=== PATIENT | female | born 1935 | race Caucasian/White ===

== ENCOUNTER 2019-07-24 07:36 | Outpatient (CLI) | payer MEDICARE, SELFPAY ==
--- NOTE | 2019-07-24 08:53 | ECG_ITS ---
Measurements Intervals [place] Rate: 80 P: 40 AK: 141 QRS: -24 QRSD: 134 T: -15 QT: 395 QTc: 457 Interpretive Statements SINUS RHYTHM WITH SINUS ARRHYTHMIA RIGHT BUNDLE BRANCH BLOCK LATERAL INFARCT, AGE INDETERMINATE BASELINE ARTIFACT- I, III, AVR, AVL, AVF, V5-V6 ABNORMAL ECG Electronically Signed On 07-24-2019 10:35:36 DATA SECURITY ANALYST by Zach Lo D.O.
[2019-07-24 09:47] LABS: Hemoglobin A1C 6.8 % (<5.7)
[2019-07-24 09:50] LABS: Albumin Level 4.5 g/dL (3.5-5.1); Estimated Glomerular Filt Rate 60; Glucose 169 mg/dL (65-105)
[2019-07-24 09:51] LABS: Basophils Absolute Auto 0.1 K/mm3 (0.0-0.1); Basophils Percent Auto 1.2 % (0.2-1.2); Eosinophils Absolute Auto 0.3 K/mm3 (0-0.3); Eosinophils Percent Auto 4.4 % (0-4.4); Hematocrit 43.8 % (37.0-47.0); Hemoglobin 14.5 g/dL (12.0-15.0); Immature Granulocyte Absolute 0.01 K/mm3 (0.00-0.031); Immature Granulocyte Percent A 0.2 % (0-0.5); Lymphocytes Percent Auto 28.4 % (18.3-44.2); Mean Corpuscular HGB Conc 33.1 g/dl (32-36); Mean Corpuscular Hemoglobin 30.2 pg (26-34); Mean Corpuscular Volume 91.3 fl (80-100); Mean Platelet Volume 10.3 fl (7.4-10.4); Monocytes Absolute Auto 0.6 K/mm3 (0.1-0.6); Monocytes Percent Auto 10.5 % (2.6-8.5); Neutrophils Absolute Auto 3.1 K/mm3 (1.3-6.7); Neutrophils Percent Auto 55.3 % (45.5-73.1); Platelet Count Result 306 k/mm3 (150-375); Red Cell Distribution Width 13.3 % (11.5-14.5); White Blood Count 5.6 K/mm3 (4.5-10.0)
[2019-07-24 09:53] LABS: Urine Cotinine NEGATIVE
== END 2019-07-24 07:37 | disposition home or self-care (01) ==
LOC: ANHSURGERY 07:41
PROVIDERS: PCP Family Medicine Adolescent Medicine; Visit Provider Orthopaedic Surgery
DX: M17.10 Unilateral primary osteoarthritis, unspecified knee (principal)
CPT/HCPCS: 36415; 80307; 82040; 82565; 82947; 83036; 85025; 86850; 86900; 86901; 87081; 93005

== ENCOUNTER 2019-08-07 05:14 | Day surgery (SDC) | payer MEDICARE, SELFPAY ==
[2019-08-07] VITALS (12 sets, daily range): BP systolic 146–202; BP diastolic 60–84; PULSE 63–70; RESP 14–21; TEMP 37; O2SAT 96–97; BMI 30.8
[2019-08-07 07:24] LABS: Basophils Absolute Auto 0.1 K/mm3 (0.0-0.1); Basophils Percent Auto 1.2 % (0.2-1.2); Eosinophils Absolute Auto 0.2 K/mm3 (0-0.3); Eosinophils Percent Auto 4.6 % (0-4.4); Hematocrit 43.1 % (37.0-47.0); Hemoglobin 14.5 g/dL (12.0-15.0); Immature Granulocyte Absolute 0.01 K/mm3 (0.00-0.031); Immature Granulocyte Percent A 0.2 % (0-0.5); Lymphocytes Absolute Auto 1.67 K/mm3 (0.9-3.2); Lymphocytes Percent Auto 33.5 % (18.3-44.2); Mean Corpuscular HGB Conc 33.6 g/dl (32-36); Mean Corpuscular Hemoglobin 30.5 pg (26-34); Mean Corpuscular Volume 90.5 fl (80-100); Mean Platelet Volume 9.8 fl (7.4-10.4); Monocytes Absolute Auto 0.5 K/mm3 (0.1-0.6); Monocytes Percent Auto 10.2 % (2.6-8.5); Neutrophils Absolute Auto 2.5 K/mm3 (1.3-6.7); Neutrophils Percent Auto 50.3 % (45.5-73.1); Platelet Count Result 295 k/mm3 (150-375); Red Blood Count 4.76 M/mm3 (4.2-5.4); Red Cell Distribution Width 13.2 % (11.5-14.5)
[2019-08-07 07:38] LABS: Blood Urea Nitrogen 16 mg/dL (7-17); Carbon Dioxide 24 mmol/L (22-30); Chloride 106 mmol/L (98-107); Estimated CRCL calculation 50 ml/min; Estimated Glomerular Filt Rate > 60; Glucose 159 mg/dL (65-105); Potassium 4.1 mmol/L (3.4-5.0); Sodium 144 mmol/L (137-145)
[2019-08-07 07:40] LABS: Prothrombin Time 12.6 Seconds (11.1-14.7)
--- NOTE | 2019-08-07 08:27 | WPDMODSED ---
Moderate Sedation Note-Pt Data Patient Data Diagnosis: Abnormal stress test Present Complaint: none Procedure to be performed/Plan: Left heart catheterization with selective left and right coronary angiography with left ventriculography and hemodynamics Allergies Allergy/AdvReac Type Severity Reaction Status Date / Time No Known Allergies Allergy Verified 07/24/19 08:02 Home Medications Medication Instructions Recorded Confirmed Type ascorbic acid (vitamin C) 100 mg 500 mg PO DAILY 07/03/19 08/06/19 History tablet aspirin 81 mg tablet,delayed 81 mg PO HS 07/03/19 08/06/19 History release fenofibrate 160 mg tablet 160 mg PO HS 07/03/19 08/06/19 History metoprolol tartrate 50 mg tablet 50 mg PO BID 07/03/19 08/06/19 History calcium carbonate [Calcium 600] 600 mg PO DAILY 07/24/19 08/06/19 History calcium carbonate-vitamin D3 1 cap PO DAILY 08/06/19 08/06/19 History Current Medications: Active Medications Sodium Chloride (Normal Saline Iv) 500 mls @ 100 mls/hr IV CONT .Q5H OMAR Sedation/Anesthesia: No previous sedation/anesthesia problems (including family history). [facility] Past Medical History Medical History Dyslipidemia Hypertension Osteoarthritis of knee Right bundle branch block Surgical History Surgical History H/O: hysterectomy History of hip replacement R MATTHEW in 2014 Family History Family History Mother Heart disease Social History Social History Smoking status: Never smoker Alcohol intake: current Gender identity (if verbalized by the patient): Female Mod Sed Physical Exam Physical Exam Pre Procedural Exam: Normal: Appearance, Eyes, Ears, Nose, Neck (Supple, normal range of motion), Throat (Posterior hypopharynx clear, nonerythematous), Airway (Normal anatomy, no obstruction), Lungs (Clear to auscultation bilaterally), Heart Size, Heart Rate, Heart Rhythm, Neuro Exam, Abdomen, Liver, Kidneys, Extremities and Skin Hours since solid foods: 12 Hours since liquid intake: 12 Internal Medicine - PN: Obj Da Vital Signs Vital Signs: Vital Signs - 24 hr 08/07/19 07:34 Temperature 37.0 C Pulse Rate 64 Respiratory Rate 18 Blood Pressure 163/62 H Pulse Oximetry 96 Meds/Results Medications: Active Medications Generic Name Dose Route Start Last Admin Trade Name Chon PRN Reason Stop Dose Admin Sodium Chloride 500 mls @ 100 mls/hr 08/07/19 06:10 Normal Saline Iv IV CONT .Q5H OMAR Labs CBC & Chem 7: 08/07/19 07:02 08/07/19 07:02 Labs: Laboratory Results - last 24 hr 08/07/19 08/07/19 08/07/19 07:02 07:02 07:02 WBC 5.0 RBC 4.76 Hgb 14.5 Hct 43.1 MCV 90.5 MCH 30.5 MCHC 33.6 RDW 13.2 Plt Count 295 MPV 9.8 Immature Gran % (Auto) 0.2 Neut % (Auto) 50.3 Lymph % (Auto) 33.5 [place] % (Auto) 10.2 H Eos % (Auto) 4.6 H Baso % (Auto) 1.2 Lymph # (Auto) 1.67 [place] # (Auto) 0.5 Eos # (Auto) 0.2 Baso # (Auto) 0.1 Abs Immat Gran (auto) 0.01 Absolute Neuts (auto) 2.5 Absolute Nucleated RBC 0.0 Nucleated RBC % 0.0 PT 12.6 INR 1.0 Sodium 144 Potassium 4.1 Chloride 106 Carbon Dioxide 24 BUN 16 Creatinine 0.80 Estim Creat Clear Calc 50 Estimated GFR > 60 Glucose 159 H Calcium 10.0 ASA Classification/Sedation ASA Classification/Sedation ASA Class: III Emergent: No Risks: Risks, benefits and alternatives explained and patient/family accepted plan for sedation. Patient re-evaluated immediately prior to sedation.
--- NOTE | 2019-08-07 08:34 | PM.PROC ---
Procedure Note - Detailed Date of procedure: 08/07/19 Pre-op diagnosis: Abnormal Stress Test Post-op diagnosis: same Procedure performed: Left heart catheterization with selective left and right coronary angiography with left ventriculography and hemodynamics Description of procedure: BRIEF HISTORY OF PRESENT ILLNESS: Patient is a pleasant 83-year-old female with a history of hypertension, dyslipidemia, chronic right bundle-branch block seen preoperative cardiovascular evaluation fracture right knee surgery due to abnormal EKG underwent noninvasive ischemic evaluation which revealed EF 52% with t.i.d. and hypokinesis of the mid anterior, anteroseptal and mid anterolateral wall with an akinetic apical anterior wall. She had a large area of severe anterior and anteroseptal infarction with [id number]-dk-[id number] fausto-infarct ischemia extending to the base most pronounced in the mid and apical segments. She is now referred for coronary angiography to clarify her coronary anatomy due to the high risk nature of her stress test. She has no known prior history of CAD or [place]. PROCEDURES PERFORMED: 1. Left heart catheterization 2. Selective left and right coronary angiography 3. Left ventriculography and hemodynamics 4. Moderate/conscious sedation administration 5. Selective right femoral angiography 6. 6 [place] Angioseal closure device deployment CATHETERS UTILIZED: Left coronary system- 5 [place] JL4 catheter Right coronary system- 5 [place] WRP catheter Left ventriculography and hemodynamics- 5 [place] angled pigtail catheter PROCEDURE IN DETAIL: After verbal and written informed consent was obtained the patient, risks, benefits, and alternatives explained in detail the patient agreed to proceed with the plan of care as outlined above. The patient was subsequently brought to the cardiac catheterization lab, placed on the cardiac catheterization table, and prepped and draped in the usual sterile fashion. Utilizing approximately 15cc of 1% subcutaneous Lidocaine, the right groin was then locally anesthetized. Utilizing the modified Seldinger technique, a 5 [place] arterial vascular access sheath was inserted in the right common femoral artery easily and without complications. Through this access, coronary angiography was subsequently obtained in multiple standard re-projections. Following this, a 5 [place] angled pigtail catheter was advanced retrograde across aortic valve into the cavity of the left ventricle. Left ventriculography was performed and pullback across aortic valve was subsequently recorded. The vascular access sheath and angiographic catheters were flushed before and after catheter exchanges. At the conclusion of the diagnostic portion of the procedure, all angiographic guidewires and catheters were removed. Following this, selective right femoral angiography was performed using a saline contrast mix injected through the side-arm port of the 5 [place] arterial vascular access sheath which revealed the arteriotomy site to be proximal to the bifurcation in the right common femoral artery suitable for Angio-Seal vascular closure device deployment. Subsequently, over the wire, the 5 [place] arterial vascular access sheath was then removed and a 6 [place] Angioseal vascular closure device was deployed easily and without complication. Additional 5 minutes manual pressure held per protocol with excellent hemostasis. There no complications noted at the conclusion of the diagnostic portion of the study. MODERATE SEDATION/ANESTHESIA ADMINISTRATION: Patient reports no prior problems with sedation/anesthesia. Please see pre-sedation noted for physical examination documentation. Sedation start time was 0856 and end time was 0856 for a total intra-service/procedure face-face time of 0946 minutes. A total of 1 mg intravenous Versed and a total of 75 mcg intravenous Fentanyl in multiple divided doses was administered for moderate sedation. Moderate sedation was ad
--- NOTE | 2019-08-07 10:10 | SUR.PHASEII ---
Patient returns to [facility] room [address] Jarrell, angioseal to RFA, family at bedside. Instructed on bed rest and restrictions, no bleeding or hematoma noted, will continue to monitor.
--- NOTE | 2019-08-07 11:12 | SUR.PHASEII ---
1100-Pt up to thirty degrees. No distress noted. Groin soft and non-tender, no evidence of bleeding or hematoma noted. Strong right pedal pulse noted. Will continue to monitor.
--- NOTE | 2019-08-07 14:16 | SUR.PHASEII ---
1400-pt given D/C orders and instructions. Questions answered and verbalized understanding. AOx4. Groin soft and non-tender, no evidence of bleeding or hematoma noted. Strong right pedal pulse noted. Taken via wheelchair to waiting vehicle. No distress noted or verbalized at time of departure.
== END 2019-08-07 14:10 | disposition home or self-care (01) ==
PROVIDERS: PCP Family Medicine Adolescent Medicine; Visit Provider Internal Medicine Cardiovascular Disease
PROC: 4A023N7 Measurement of Cardiac Sampling and Pressure, Left Heart, Percutaneous Approach (ICD-10-PCS; CPT 93452; principal; 2019-08-07 08:30)
DX: I25.10 Atherosclerotic heart disease of native coronary artery without angina pectoris (principal); R94.39 Abnormal result of other cardiovascular function study; I10 Essential (primary) hypertension; I45.10 Unspecified right bundle-branch block; E78.5 Hyperlipidemia, unspecified; Z79.82 Long term (current) use of aspirin
CPT/HCPCS: 36415; 80048; 85025; 85610; 93458; A9270; C1760; C1887; C1894; G0269; J1644; J2250; J3010; J7040

== ENCOUNTER 2019-08-21 09:11 | Outpatient (CLI) | payer MEDICARE, SELFPAY ==
[2019-08-21 10:12] LABS: Blood Urea Nitrogen 16 mg/dL (7-17); Calcium 9.8 mg/dL (8.4-10.2); Carbon Dioxide 26 mmol/L (22-30); Chloride 103 mmol/L (98-107); Cholesterol 188 mg/dL (0-200); Estimated Glomerular Filt Rate > 60; Glucose 162 mg/dL (65-105); HDL Direct 53 mg/dL; Potassium 4.2 mmol/L (3.4-5.0); Sodium 143 mmol/L (137-145); Triglycerides 102 mg/dL (<150)
[2019-08-21 10:24] LABS: LDL Cholesterol Direct 119 mg/dL
== END 2019-08-21 09:12 | disposition home or self-care (01) ==
LOC: ANHLAB 09:14
PROVIDERS: PCP Family Medicine Adolescent Medicine; Visit Provider Nurse Practitioner Adult Health
DX: I10 Essential (primary) hypertension (principal); I25.10 Atherosclerotic heart disease of native coronary artery without angina pectoris
CPT/HCPCS: 36415; 80048; 80061

== ENCOUNTER 2019-12-22 07:47 | Outpatient (CLI) | payer MEDICARE, SELFPAY ==
[2019-12-22 09:34] LABS: Basophils Absolute Auto 0.1 K/mm3 (0.0-0.1); Basophils Percent Auto 1.4 % (0.2-1.2); Eosinophils Absolute Auto 0.2 K/mm3 (0-0.3); Eosinophils Percent Auto 3.7 % (0-4.4); Hematocrit 44.1 % (37.0-47.0); Hemoglobin 14.7 g/dL (12.0-15.0); Immature Granulocyte Absolute 0.01 K/mm3 (0.00-0.031); Immature Granulocyte Percent A 0.2 % (0-0.5); Lymphocytes Percent Auto 29.6 % (18.3-44.2); Mean Corpuscular HGB Conc 33.3 g/dl (32-36); Mean Corpuscular Hemoglobin 30.6 pg (26-34); Mean Corpuscular Volume 91.9 fl (80-100); Mean Platelet Volume 10.1 fl (7.4-10.4); Monocytes Absolute Auto 0.6 K/mm3 (0.1-0.6); Monocytes Percent Auto 10.3 % (2.6-8.5); Neutrophils Absolute Auto 3.2 K/mm3 (1.3-6.7); Neutrophils Percent Auto 54.8 % (45.5-73.1); Platelet Count Result 282 k/mm3 (150-375); Red Cell Distribution Width 13.2 % (11.5-14.5); White Blood Count 5.8 K/mm3 (4.5-10.0)
[2019-12-22 09:44] LABS: Urine Cotinine NEGATIVE
[2019-12-22 09:45] LABS: Albumin Level 4.4 g/dL (3.5-5.1); Estimated Glomerular Filt Rate > 60; Glucose 189 mg/dL (65-105)
[2019-12-22 09:54] LABS: Hemoglobin A1C 7.2 % (<5.7)
== END 2019-12-22 07:48 | disposition home or self-care (01) ==
LOC: ANHSURGERY 07:53
PROVIDERS: PCP Family Medicine Adolescent Medicine; Visit Provider Orthopaedic Surgery
DX: M17.11 Unilateral primary osteoarthritis, right knee (principal); Z01.818 Encounter for other preprocedural examination
CPT/HCPCS: 36415; 80307; 82040; 82565; 82947; 83036; 85025; 86850; 86900; 86901; 87081

== ENCOUNTER 2019-12-26 00:09 | Outpatient (CLI) | payer MEDICARE, SELFPAY ==
[2019-12-27 17:28] LABS: SARS-CoV-2 RNA PCR Negative
== END 2019-12-26 00:10 | disposition home or self-care (01) ==
LOC: ANHCOVIDDT 00:09
PROVIDERS: PCP Family Medicine Adolescent Medicine; Visit Provider Orthopaedic Surgery
DX: Z01.818 Encounter for other preprocedural examination (principal); Z11.59 Encounter for screening for other viral diseases
CPT/HCPCS: 87635; C9803; U0003

== ENCOUNTER 2019-12-29 01:17 | Day surgery (SDC) | payer MEDICARE, SELFPAY ==
[2019-07-24 08:10] VITALS: BP 182/82; PULSE 76; RESP 20; TEMP 36.9; O2SAT 96
[2019-07-24 08:20] VITALS: BMI 31.4
[2019-09-08 11:00] VITALS: BMI 30.9
[2019-12-22 08:22] VITALS: BMI 31.8
[2019-12-22 08:50] VITALS: BP 158/63; PULSE 60; RESP 18; TEMP 36.8; O2SAT 99
[2019-12-29] VITALS (13 sets, daily range): BP systolic 150–180; BP diastolic 53–74; PULSE 60–83; RESP 12–21; TEMP 36–36.9; O2SAT 92–99
--- NOTE | ~2019-12-29 | XR_ITS ---
EXAMINATION: XR knee RT 2V DATE: 12/29/2019 10:14 INDICATION: Right total knee arthroplasty. Postop. TECHNIQUE: 2 views of right knee were obtained. COMPARISON: Right knee radiographs 07/03/2019 FINDINGS: There is a total right knee arthroplasty with patellar resurfacing in near-anatomic alignme nt. No fracture. There is gas in the soft tissues, consistent with recent surgery. IMPRESSION: 1. Total right knee arthroplasty in near-anatomic alignment. Reviewed, dictated and finalized at location A.
[2019-12-29] MEDS: LACTATED RINGERS 1,000 ML 30 ML IV CONT ×2 (06:45→10:00)
[2019-12-29] MEDS: TRANEXAMIC ACID 1,000MG/ISO100 1,000 MG/100 ML BAG 200 MG IVPB (06:45)
--- NOTE | 2019-12-29 06:51 | WPDANESEPPF ---
Anes - Initial Pre Proc Eval Procedure: Operation Date: 12/29/19 07:30 Proposed Procedures p Right Total Knee Arthroplasty - Socrates Klein MD Date/Time: 12/29/19 06:51 Surgeon: Socrates Klein MD Pre Op Diagnosis: OA Right Knee Patient Data Age: 84 Gender: F Height: 5 ft 4 in Weight: 84.3 kg Last Vital Signs Temp 36.8 C 12/22/19 08:50 Pulse 60 12/22/19 08:50 Resp 18 12/22/19 08:50 BP 158/63 H 12/22/19 08:50 Pulse Ox 99 12/22/19 08:50 Allergies Allergy/AdvReac Type Severity Reaction Status Date / Time No Known Allergies Allergy Verified 12/22/19 08:01 Home Medications Medication Instructions Recorded Confirmed Type ascorbic acid (vitamin C) 100 mg 500 mg PO DAILY 07/03/19 12/22/19 History tablet aspirin 81 mg tablet,delayed 81 mg PO HS 07/03/19 12/22/19 History release fenofibrate 160 mg tablet 160 mg PO HS 07/03/19 12/22/19 History metoprolol tartrate 50 mg tablet 50 mg PO BID 07/03/19 12/22/19 History calcium carbonate [Calcium 600] 600 mg PO DAILY 07/24/19 12/22/19 History calcium carbonate-vitamin D3 1 cap PO DAILY 08/06/19 12/22/19 History ramipril 1.25 mg PO DAILY #30 cap 08/07/19 12/22/19 Rx pravastatin [Pravachol] 40 mg PO HS 09/08/19 12/22/19 History multivitamin,ay-jnla-rnnjhqsr 1 tablet PO DAILY 12/22/19 12/22/19 History [Complete Multivitamin] naproxen sodium [Aleve] 220 mg PO Q12H PRN 12/22/19 12/22/19 History Patient hx anesthesia problems: none Family hx anesthesia problems: none PMFSH Past Medical History Medical History (Updated 12/29/19 @ 06:51 by Fran Jennings MD) CAD (coronary artery disease) Dyslipidemia Hypertension Osteoarthritis of knee Right bundle branch block Surgical History Surgical History H/O: hysterectomy History of hip replacement R MATTHEW in 2014 Family History Family History Mother Heart disease Social History Social History Smoking status: Never smoker Alcohol intake: current Gender identity (if verbalized by the patient): Female Anes - Eval Final PreProcedure Day of Procedure 12/29/19 06:51 Patient weight: obese Heart: regular rate and rhythm Lungs: clear to auscultation Airway: Mallamp[place] scale class II Neurological: alert and oriented Last oral intake: >/= 8 hours ASA classification: III Emergent: no Anesthetic plan: proceed Anesthesia type and monitoring: general ETT and standard monitoring Informed Consent: The patient's anesthetic plan and its attendant risks including ME and benefits were discussed with the patient/family/POA. Questions were solicited and answers provided to the satisfaction of the patient/family/POA.
--- NOTE | 2019-12-29 07:15 | WPDHPUPDATE1 ---
History and Physical Update Update Date/Time: 12/29/19 07:15 History and Physical has been reviewed, including an updated exam of the patient. There are NO changes in the patient's condition. Risks, benefits, and alternatives have been discussed and questions answered. Patient agrees to proceed with procedure.
[2019-12-29] MEDS: ceFAZolin 2 GM/D5W 50 ML 2 GM/50 ML BAG IVPB (07:39)
[2019-12-29] MEDS: TRANEXAMIC ACID 1,000 MG/10 ML AMPUL 1000 MG TOPICAL (08:05)
--- NOTE | 2019-12-29 08:08 | SUR.PREOP ---
0805-SPOKE WITH DAUGHTER, FILOMENA WITH UPDATE TO OR.
[2019-12-29] MEDS: GENTAMICIN BONE CEMENT REFOBACIN 1 EACH TOPICAL (09:00)
[2019-12-29] MEDS: ceFAZolin SODIUM 1 GM VIAL IV PUSH (09:20)
--- NOTE | 2019-12-29 09:57 | PM.PROC ---
Procedure Note - Detailed Date of procedure: 12/29/19 Pre-op diagnosis: OA Right Knee Post-op diagnosis: same Procedure performed: Right total knee replacement Description of procedure: The patient was identified and proper site identified. The patient was taken to the operating room and transferred to the OR table positioning supine taking care to pad the torso and extremities. After general anesthetic induction and intubation a nonsterile tourniquet was placed high on the left thigh. The left lower extremity was prepped and draped in the usual sterile fashion. The extremity was exsanguinated and with the knee flexed tourniquet was inflated to 300 mmHg remaining up for approximately 70 minutes. An anterior midline incision was made and a modified medial parapatellar approach was used. Infra and suprapatellar fat pads were excised. Patella was resected leaving 15 mm thickness and prepared for the 31 round three peg component. Using the intramedullary guide the distal femur was cut in the proper orientation for the size 67.5 femoral component. Using the extramedullary guide the tibia was cut perpendicular to the long axis protecting collateral ligaments and popliteal structures. It was sized to a 67. Flexion and extension gaps were balanced. Trial reduction was undertaken and the weight-bearing line was noted to passed through the center of the joint. Proximal tibia was drilled and punched in the proper orientation for the real component. Trial components were removed. The bone surfaces were washed with pulsatile lavage and dried. The real components were cemented simultaneously. The knee was held in extension and the patella held clamped until the cement had cured. Excess cement was removed from the joint. After trialing it was determined that the 13 mm insert gave full range of motion from 0-120 degrees of flexion and the patella tracked in the femoral groove with no lift-off. After final lavage the joint the real 13 insert was placed and secured with a locking bar. A Betadine and saline wash was placed into the wound and allowed to sit for approximately 3 minutes and then evacuated. Periarticular tissues were infiltrated with 60 cc of the arthroplasty solution. 1 g of tranexamic acid was left in the wound. The extensor mechanism was repaired with #2 Vicryl suture and 0 looped PDS suture. Subcu was reapproximated with two 0 strata fix and tissue adhesive for the skin. A sterile dressing was applied. She tolerated the procedure well, was awakened and extubated, transferred to the bed and was taken to recovery area in stable condition. There were no known intraoperative complications. Perioperative antibiotics were administered. Anesthesia: GLMA Surgeon: Socrates Klein MD Estimated blood loss (mL): 100 Tourniquet time (min): 70 Drains: No Packing: No Pathology: none sent Complications: No immediate complications Condition: stable Disposition: PACU
--- NOTE | 2019-12-29 10:52 | SUR.PHASEI ---
1010 xrays of right knee done.
[2019-12-29] MEDS: SODIUM CHLORIDE 0.9% IV 1,000 ML 125 ML IV CONT (11:54)
[2019-12-29] MEDS: oxyCODONE/ACETAMINOPHEN 5-325 MG TABLET 1 TABLET PO ×3 (13:56→20:59)
--- NOTE | 2019-12-29 16:41 | CONS_ITS ---
This report was moved to the correct visit, [id number] on 05/06/2020. Original report was signed by Misty Melchor APN on 12/29/19 1407. ADDENDUM This is for the consult for 12/29/19 Addendum Documented By: Misty Melchor 03/18/20 1242 Addendum Signed By: <Electronically signed by Misty hernandez> 03/18/20 1242 Assessment and Plan Assessment and plan (1) S/P total knee arthroplasty: Code(s): Z96.659 - Presence of unspecified artificial knee joint Status: Acute Assessment and Plan: Postop care per Dr. Diana.. DVT prophylaxis per Dr. diana patient has SCDs on. (2) CAD (coronary artery disease): Code(s): I25.10 - Atherosclerotic heart disease of [place] coronary artery without angina pectoris Status: Acute Assessment and Plan: The patient is his being treated with rampimil and metoprolol pedal fibrate. (3) Dyslipidemia: Code(s): E78.5 - Hyperlipidemia, unspecified Status: Acute Assessment and Plan: Continue with fenofibrate (4) Hypertension: Code(s): I10 - Essential (primary) hypertension Status: Acute Assessment and Plan: Continue with metoprolol ramipril HPI Data of Consult Consult date: 12/29/19 Requesting Physician: Socrates Diana MD Primary Care Provider: Kory Perea MD Consult Narrative Narrative: Yohana Francis is a 84 year old female who has severe degenerative arthritis to her right knee. The patient typically rides her bike and she was having difficulty riding her bike. She has tried physical therapy and occupational therapy. She tells me she has tried to injections and they just did last for her. She has tried Aleve and ice. The patient had a cardiac workup. She has a history of coronary artery disease but is in a smaller vessel and no intervention could be performed. She is just medically treated by Cardiology for her coronary artery disease. The patient is already walk today ends up sitting in the chair. She has no complaints at this time. See patient's up report per Dr. diana and anesthesia note. Total knee arthroplasty per Dr. diana. I thank Dr. diana for this consult and the date of this consult is 12/29/2019 Review of Systems Review of Systems: All systems reviewed & are unremarkable except as noted in HPI and below Constitutional: Constitutional: Reports as per HPI and Reports no additional constitutional complaints Eyes: Eyes: Reports as per HPI and Reports no additional eye complaints ENT: Reports system reviewed and no additional complaints, except as documented and Reports Normal hearing present Cardiovascular: Cardiovascular: Reports no additional cardiovascular complaints Respiratory: Respiratory: Reports no additional respiratory complaints and Reports no additional respiratory complaints Gastrointestinal: Gastrointestinal: Reports as per HPI and Reports no additional gastrointestinal complaints Musculoskeletal: Musculoskeletal: Reports no additional musculoskeletal complaints Integumentary/Breasts: Skin/Breast: Reports system reviewed and no additional complaints, except as docu and Reports as per HPI Neurologic: Reports system reviewed and no additional complaints, except as documented, Reports as per HPI and Reports Normal hearing present Psychiatric: Psychiatric: Reports no additional psychiatric complaints and Reports as per HPI Endocrine: Endocrine: Reports no additional endocrine complaint
[2019-12-29] MEDS: DOCUSATE SODIUM 100 MG CAPSULE PO (18:00)
[2019-12-29] MEDS: PRAVASTATIN SODIUM 20 MG TABLET 40 MG PO (20:59)
[2019-12-29] MEDS: FAMOTIDINE 20 MG TABLET PO (20:59)
[2019-12-29] MEDS: METOPROLOL TARTRATE 50 MG TAB PO (20:59)
[2019-12-29] MEDS: FENOFIBRATE 160 MG TABLET PO (20:59)
[2019-12-30] MEDS: oxyCODONE/ACETAMINOPHEN 5-325 MG TABLET 1 TABLET PO ×4 (00:05→12:35)
[2019-12-30 02:00] VITALS: BP 144/56; PULSE 64; RESP 20; TEMP 36.4; O2SAT 98
[2019-12-30 05:57] LABS: Basophils Percent Auto 0.2 % (0.2-1.2); Eosinophils Absolute Auto 0.1 K/mm3 (0-0.3); Eosinophils Percent Auto 0.5 % (0-4.4); Hemoglobin 11.1 g/dL (12.0-15.0); Immature Granulocyte Absolute 0.03 K/mm3 (0.00-0.031); Immature Granulocyte Percent A 0.3 % (0-0.5); Lymphocytes Absolute Auto 1.74 K/mm3 (0.9-3.2); Lymphocytes Percent Auto 17.9 % (18.3-44.2); Mean Corpuscular HGB Conc 32.6 g/dl (32-36); Mean Corpuscular Hemoglobin 30.5 pg (26-34); Mean Corpuscular Volume 93.4 fl (80-100); Mean Platelet Volume 9.9 fl (7.4-10.4); Monocytes Absolute Auto 0.9 K/mm3 (0.1-0.6); Monocytes Percent Auto 8.9 % (2.6-8.5); Neutrophils Percent Auto 72.2 % (45.5-73.1); Platelet Count Result 229 k/mm3 (150-375); Red Blood Count 3.64 M/mm3 (4.2-5.4); Red Cell Distribution Width 13.2 % (11.5-14.5); White Blood Count 9.7 K/mm3 (4.5-10.0)
[2019-12-30 06:00] VITALS: BP 151/66; PULSE 66; RESP 20; TEMP 36.5; O2SAT 98
[2019-12-30 06:07] LABS: Alanine Aminotransferase 18 U/L (4-35); Albumin Level 3.5 g/dL (3.5-5.1); Alkaline Phosphatase 64 U/L (38-126); Aspartate Amino Transferase 23 U/L (14-36); Bilirubin,Total 0.4 mg/dL (0.2-1.3); Blood Urea Nitrogen 19 mg/dL (7-17); Carbon Dioxide 25 mmol/L (22-30); Chloride 106 mmol/L (98-107); Estimated CRCL calculation 49 ml/min; Estimated Glomerular Filt Rate > 60; Glucose 143 mg/dL (65-105); Magnesium 1.9 mg/dL (1.6-2.3); Potassium 4.2 mmol/L (3.4-5.0); Sodium 137 mmol/L (137-145)
[2019-12-30 06:52] LABS: Thyroid Stimulating Hormone Reflex 0.665 uIU/mL (0.465-4.68)
--- NOTE | 2019-12-30 07:11 | PM.PNORT ---
Progress Note: A&P Assessment and Plan (1) S/P total knee arthroplasty: Qualifiers: Laterality: right Qualified Code(s): Z96.651 - Presence of right artificial knee joint Code(s): Z96.659 - Presence of unspecified artificial knee joint Status: Acute Assessment and Plan: 84-year-old female postop day one right total knee replacement and doing very well. She will be discharged home after her therapy today. Instructions were reviewed with her in detail. She has a follow-up with me in approximately two weeks for wound check. He is to call with any questions prior to this. Subjective Subjective Date/Time Seen: 12/30/19 07:11 Post Op day: 1 Principal diagnosis: Status post right total knee replacement Interval history: 84-year-old female postop day one right total knee replacement. Doing very well. Review of Systems Constitutional: Constitutional: Denies chills and Denies fever(s) Eyes: Eyes: Reports no additional eye complaints ENT: Reports system reviewed and no additional complaints, except as documented Cardiovascular: Cardiovascular: Denies chest pain and Denies dyspnea on exertion Respiratory: Respiratory: Reports no additional respiratory complaints and Denies dyspnea on exertion Gastrointestinal: Gastrointestinal: Denies abdominal pain and Denies bloating Exam Const: General: cooperative, no acute distress and alert Nutritional Appearance: other Orientation/consciousness: patient oriented x3 Limitations: no limitations HENMT: Head: normal to inspection Ears: hearing grossly normal bilaterally Face and sinus: face symmetric Mouth: Yes moist mucous membranes Teeth and gingiva: fair dentition Eyes: Alignment and Position: alignment normal and position normal Sclera: sclerae normal Neck: Neck: normal visual inspection and nontender Chest: Chest palpation & inspection: normal inspection of the chest Resp: Effort & Inspection: normal respiratory effort and able to speak in complete sentences GI: Inspection: normal to inspection (Nontender, nondistended) Skin: General skin exam: normal color Rashes: no rashes Neuro: General: patient oriented x3 Cognition (Neuro): normal cognition Speech: normal speech Gait exam (Neuro): Other gait observations present Motor exam (neuro): 5/5 motor strength present throughout Sensory Exam: normal sensation Extrem: General: normal to inspection and other Other: Exam of the right knee shows well opposed incision. Dressing is dry. Neurovascular status right lower extremity unremarkable. Calves nontender. Psych: Appearance: grossly normal Mental Status: mental status grossly normal Objective Data Vital Signs Vital Signs: Vital Signs - 24 hr 12/29/19 10:00 12/29/19 10:15 12/29/19 10:30 Temperature 98.5 F Pulse Rate 83 69 64 Respiratory Rate 12 16 15 Blood Pressure 169/71 H 166/69 H 172/71 H Pulse Oximetry 98 93 92 12/29/19 10:45 12/29/19 11:00 12/29/19 11:14 Temperature 97.6 F Pulse Rate 67 64 68 Respiratory Rate 15 17 14 Blood Pressure 169/71 H 174/71 H 170/59 H Pulse Oximetry 93 95 99 12/29/19 11:29 12/29/19 11:59 12/29/19 12:59 Temperature 96.8 F L 96.8 F L 97.4 F L Pulse Rate 60 71 78 Respiratory Rate 19 21 H 19 Blood Pressure 150/59 H 169/71 H 167/60 H Pulse Oximetry 99 96 96 12/29/19 18:00 12/29/19 20:59 12/29/19 22:00 Temperature 97.5 F L 98.0 F Pulse Rate 70 72 80 Respiratory Rate 19 20 Blood Pressure 180/70 H 164/53 H Pulse Oximetry 97 98 12/30/19 02:00 Temperature 97.5 F L Pulse Rate 64 Respiratory Rate 20 Blood Pressure 144/56 H Pulse Oximetry 98 Intake/Output Intake/Output: Intake & Output 12/27/19 12/28/19 12/29/19 12/30/19 23:59 23:59 23:59 23:59 Intake Total 2597 / 2597 50 / 50 Output Total 975 / 975 Balance 1622 / 1622 50 / 50 Meds/Results Medications: Active Medications Generic Name Dose Route Start Last Admin Trade Name Freq PRN Reason Stop Do
--- NOTE | 2019-12-30 07:13 | PM.DS ---
DS: Admitting Diagnosis Admitting Diagnosis Admitting Diagnosis: Unilateral primary osteoarthritis, unspecified knee DS: Discharge Diagnosis Discharge Diagnosis (1) S/P total knee arthroplasty: Qualifiers: Laterality: right Qualified Code(s): Z96.651 - Presence of right artificial knee joint Code(s): Z96.659 - Presence of unspecified artificial knee joint Status: Acute DS: Summary Time Spent with Patient Time attestation: Total time spent providing and/or coordinating discharge services: DS: Data Data Completed and Pending Labs on day of discharge: Labs from last 24 hours 12/30/19 12/30/19 12/30/19 05:38 05:38 05:38 WBC 9.7 RBC 3.64 L Hgb 11.1 L D Hct 34.0 L MCV 93.4 MCH 30.5 MCHC 32.6 RDW 13.2 Plt Count 229 MPV 9.9 Immature Gran % (Auto) 0.3 Neut % (Auto) 72.2 Lymph % (Auto) 17.9 L [place] % (Auto) 8.9 H Eos % (Auto) 0.5 Baso % (Auto) 0.2 Lymph # (Auto) 1.74 [place] # (Auto) 0.9 H Eos # (Auto) 0.1 Baso # (Auto) 0.0 Abs Immat Gran (auto) 0.03 Absolute Neuts (auto) 7.0 H Absolute Nucleated RBC 0.0 Nucleated RBC % 0.0 Sodium 137 Potassium 4.2 Chloride 106 Carbon Dioxide 25 BUN 19 H Creatinine 0.80 Estim Creat Clear Calc 49 Estimated GFR > 60 Glucose 143 H Calcium 9.0 Magnesium 1.9 Total Bilirubin 0.4 AST 23 ALT 18 Alkaline Phosphatase 64 Total Protein 6.0 L Albumin 3.5 TSH (Reflex) 0.665 Discharge Plan Discharge Patient Disposition: Home, Self-Care Discharge Instructions: 3 times daily for 20 minutes each time, reclining in bed with ice packs over the incision and a pillow underneath the affected calf; there should be nothing but daylight under the knee. Your wound is glued so it is okay to get into the shower and get the wound wet. Be sure to read through all the information that came from a my office and the hospital. Most of the answer was you will need can be found that material. Call the office with any questions that you cannot find answers to, or concerns you may have. After the Xarelto is completed, start taking one coated 325 mg aspirin daily and do this for four more weeks. You can resume year 81 mg daily aspirin six weeks after the surgery. Please call [facility] at as soon as possible to verify follow-up appointment to be seen in two weeks. Also, call the office with any orthopedic/surgical related questions prior to follow-up. Be sure to get up and move around several times daily but do not overdo it. Patient Instructions: Rivaroxaban (By mouth) Discharge Medications: New oxycodone-acetaminophen 5-325 mg Tablet 1 tablet PO Q4HR PRN (Reason: pain) Qty: 40 RF: 0 Xarelto 10 mg Tablet 10 mg PO QAM Qty: 0 RF: 0 Continued metoprolol tartrate 50 mg tablet 50 mg PO BID RF: 0 ascorbic acid (vitamin C) 100 mg tablet 500 mg PO DAILY RF: 0 fenofibrate 160 mg tablet 160 mg PO HS RF: 0 calcium carbonate [Calcium 600] 600 mg calcium (1,500 mg) Tablet 600 mg PO DAILY RF: 0 pravastatin [Pravachol] 40 mg Tablet 40 mg PO HS RF: 0 Complete Multivitamin Tablet 1 tablet PO DAILY RF: 0 calcium carbonate-vitamin D3 200 mg (500 mg) -400 unit Capsule 1 cap PO DAILY RF: 0 ramipril 1.25 mg capsule 1.25 mg PO DAILY Qty: 30 RF: 3 Held aspirin [Adult Aspirin Regimen] 81 mg tablet,delayed release (DR/EC) 81 mg PO HS RF: 0 Hold Instructions: Resume on 02/10/20. Hold this dose for six weeks. naproxen sodium [Aleve] 220 mg Tablet 220 mg PO Q12H PRN (Reason: Pain) RF: 0 Hold Instructions: Resume on 01/13/20. Hold well taking the Xarelto Quality VTE Prophylaxis VTE prophylaxis: mechanical ordered and pharmacologic ordered
--- NOTE | 2019-12-30 07:21 | P.PNAN_ITS ---
Anes - Prog Note Post-Op Date/Time: 12/30/19 07:21 Cardiovascular status: normal Respiratory status: normal Airway patency: baseline Mental status: baseline Post-Op hydration status: normal Vital Signs: Last Vital Signs Temp 36.4 C L 12/30/19 02:00 Pulse 64 12/30/19 02:00 Resp 20 12/30/19 02:00 BP 144/56 H 12/30/19 02:00 Pulse Ox 98 12/30/19 02:00 I/O: Intake & Output 12/29/19 12/29/19 12/30/19 15:59 23:59 07:59 Intake Total 1090 1357 50 Output Total 975 Balance 1090 382 50 Laboratory Tests 12/30/19 05:38 12/30/19 05:38 12/30/19 12/30/19 12/30/19 05:38 05:38 05:38 WBC 9.7 RBC 3.64 L Hgb 11.1 L D Hct 34.0 L MCV 93.4 MCH 30.5 MCHC 32.6 RDW 13.2 Plt Count 229 MPV 9.9 Immature Gran % (Auto) 0.3 Neut % (Auto) 72.2 Lymph % (Auto) 17.9 L [place] % (Auto) 8.9 H Eos % (Auto) 0.5 Baso % (Auto) 0.2 Lymph # (Auto) 1.74 [place] # (Auto) 0.9 H Eos # (Auto) 0.1 Baso # (Auto) 0.0 Abs Immat Gran (auto) 0.03 Absolute Neuts (auto) 7.0 H Absolute Nucleated RBC 0.0 Nucleated RBC % 0.0 Sodium 137 Potassium 4.2 Chloride 106 Carbon Dioxide 25 BUN 19 H Creatinine 0.80 Estim Creat Clear Calc 49 Estimated GFR > 60 Glucose 143 H Calcium 9.0 Magnesium 1.9 Total Bilirubin 0.4 AST 23 ALT 18 Alkaline Phosphatase 64 Total Protein 6.0 L Albumin 3.5 TSH (Reflex) 0.665 Post-procedural complaints: none Patient Feedback: Patient satisfied with anesthetic care.
[2019-12-30 08:00] VITALS: PULSE 66; RESP 20; O2SAT 98
[2019-12-30] MEDS: ASCORBIC ACID 500 MG TABLET PO (08:42)
[2019-12-30] MEDS: RIVAROXABAN 10 MG TABLET PO (08:42)
[2019-12-30] MEDS: DOCUSATE SODIUM 100 MG CAPSULE PO (08:42)
[2019-12-30] MEDS: FAMOTIDINE 20 MG TABLET PO (08:42)
[2019-12-30] MEDS: THERAPEUTIC MULTIVITAMINS/MINERALS TAB (*BKC) 1 TABLET PO (08:43)
[2019-12-30] MEDS: METOPROLOL TARTRATE 50 MG TAB PO (08:43)
[2019-12-30] MEDS: CALCIUM CARBONATE (OSCAL) 500 MG TABLET PO (08:43)
[2019-12-30 10:15] VITALS: BP 158/69; PULSE 67; RESP 16; TEMP 37.1; O2SAT 99
[2019-12-30 12:11] LABS: Hematocrit 36.1 % (37.0-47.0); Hemoglobin 11.8 g/dL (12.0-15.0)
--- NOTE | 2019-12-30 12:32 | PM.IMPN ---
Progress Note: A&P Assessment and Plan (1) New onset type 2 diabetes mellitus: Code(s): E11.9 - Type 2 diabetes mellitus without complications Status: Acute Assessment and Plan: -----A1c 7.2. I reviewed this with the patient and family at bedside. She wants to work on diet control before starting any medications. Her is a diabetic and she is well-versed in diabetic care. She says right now she eats whatever she wants and she is going to work on that. She was given reading materials. I called her primary care physician and he is going to recheck A1c in 3 months. He agrees with the plan of care. (2) S/P total knee arthroplasty: Qualifiers: Laterality: right Qualified Code(s): Z96.651 - Presence of right artificial knee joint Code(s): Z96.659 - Presence of unspecified artificial knee joint Status: Acute Assessment and Plan: -----doing well with therapy. Continue recommendations per Dr. diana (3) CAD (coronary artery disease): Code(s): I25.10 - Atherosclerotic heart disease of [place] coronary artery without angina pectoris Status: Acute Assessment and Plan: -----no acute symptoms. Patient follows Dr. Hurley and closely with her primary care physician. (4) Dyslipidemia: Code(s): E78.5 - Hyperlipidemia, unspecified Status: Acute Assessment and Plan: -----continue home medications (5) Right bundle branch block: Code(s): I45.10 - Unspecified right bundle-branch block Status: Acute Assessment and Plan: -----chronic. (6) Hypertension: Code(s): I10 - Essential (primary) hypertension Status: Acute Assessment and Plan: -----last blood pressure 158/69, likely a little elevated due to surgery and pain. Continue home medications. Time Spent With Patient Time with patient: 25 - 35 minutes Subjective Date/time seen: 12/30/19 12:32 Interval history: Pt is a 84-year-old female here for right elective knee arthroplasty. Patient was seen today and is doing well. Her pain is under control and she has been doing well with therapy. Pt denies nausea, vomiting, fevers, chills, constipation, diarrhea, chest pain, sob, or abdominal pain. She has never been diagnosed with diabetes and is little surprised her A1c is 7.2. She states that she would like to work on diet control before starting any medications as she says right now she eats whatever she wants and she thinks she can improve it that way. She was given reading materials Review of Systems Review of Systems: All systems reviewed & are unremarkable except as noted in HPI and below Exam Narrative: Exam Narrative: General: Well developed well nourished patient in NAD HEENT: normocephalic Neck: supple Neuro: Alert and oriented x4 CV:RRR with slight systolic murmur Resp:CTA Abd: Soft, non distended. No pain to palpation. Positive bowel sounds Extremities: Right leg with bandage intact without excessive swelling, erythema, or bleeding. Sensation and pulses intact. Objective Data Vital Signs Vital Signs: Vital Signs - 24 hr 12/29/19 12:59 12/29/19 18:00 12/29/19 20:59 Temperature 97.4 F L 97.5 F L Pulse Rate 78 70 72 Respiratory Rate 19 19 Blood Pressure 167/60 H 180/70 H Pulse Oximetry 96 97 12/29/19 22:00 12/30/19 02:00 12/30/19 06:00 Temperature 98.0 F 97.5 F L 97.7 F Pulse Rate 80 64 66 Respiratory Rate 20 20 20 Blood Pressure 164/53 H 144/56 H 151/66 H Pulse Oximetry 98 98 98 12/30/19 08:00 12/30/19 10:15 Temperature 98.7 F Pulse Rate 66 67 Respiratory Rate 20 16 Blood Pressure 158/69 H Pulse Oximetry 98 99 Intake/Output Intake/Output: Intake & Output 12/27/19 12/28/19 12/29/19 12/30/19 23:59 23:59 23:59 23:59 Intake Total 2597 740 Output Total 975 300 Balance 1622 440 Meds/Results Medications: Active Medications Generic Name Dose Route Start Last Admin
--- NOTE | 2019-12-30 14:20 | PCCPR ---
On 12/30/19, the student, Stacia Lopez, provided care and completed [facility] documentation on this patient. I have reviewed the student's documentation and agree with the findings.
== END 2019-12-30 13:26 | disposition home or self-care (01) ==
LOC: ANHSURGERY 05:53 → ANH2MED 11:16
PROVIDERS: Nurse Practitioner; Physician Assistant; PCP Family Medicine Adolescent Medicine; Visit Provider Orthopaedic Surgery
PROC: (CPT 27447; principal; 2019-12-29 07:30)
DX: M17.11 Unilateral primary osteoarthritis, right knee (principal); I10 Essential (primary) hypertension; I25.10 Atherosclerotic heart disease of native coronary artery without angina pectoris; E78.5 Hyperlipidemia, unspecified; I45.10 Unspecified right bundle-branch block; Z79.82 Long term (current) use of aspirin; E66.9 Obesity, unspecified; Z68.31 Body mass index [BMI] 31.0-31.9, adult
CPT/HCPCS: 27447; 36415; 73560; 80053; 83735; 84443; 85014; 85018; 85025; 87635; 97110; 97116; 97161; 97165; 97530; A9270; C1713; C1771; C1776; C9803; J0131; J0171; J0330; J0690; J1100; J1885; J2250; J2270; J2405; J2704; J2795; J3010; J3370; J7030; J7120; U0003

== ENCOUNTER 2020-01-28 15:45 | Outpatient (RCR) | payer MEDICARE, SELFPAY ==
--- NOTE | 2019-12-29 16:29 | PM.IMCN ---
Assessment and Plan Assessment and plan (1) S/P total knee arthroplasty: Code(s): Z96.659 - Presence of unspecified artificial knee joint Status: Acute Assessment and Plan: Postop care per Dr. Diana.. DVT prophylaxis per Dr. diana patient has SCDs on. (2) CAD (coronary artery disease): Code(s): I25.10 - Atherosclerotic heart disease of [place] coronary artery without angina pectoris Status: Acute Assessment and Plan: The patient is his being treated with rampimil and metoprolol pedal fibrate. (3) Dyslipidemia: Code(s): E78.5 - Hyperlipidemia, unspecified Status: Acute Assessment and Plan: Continue with fenofibrate (4) Hypertension: Code(s): I10 - Essential (primary) hypertension Status: Acute Assessment and Plan: Continue with metoprolol ramipril HPI Data of Consult Consult date: 12/29/19 Requesting Physician: Socrates Diana MD Primary Care Provider: Kory Perea MD Consult Narrative Narrative: Yohana Francis is a 84 year old female who has severe degenerative arthritis to her right knee. The patient typically rides her bike and she was having difficulty riding her bike. She has tried physical therapy and occupational therapy. She tells me she has tried to injections and they just did last for her. She has tried Aleve and ice. The patient had a cardiac workup. She has a history of coronary artery disease but is in a smaller vessel and no intervention could be performed. She is just medically treated by Cardiology for her coronary artery disease. The patient is already walk today ends up sitting in the chair. She has no complaints at this time. See patient's up report per Dr. diana and anesthesia note. Total knee arthroplasty per Dr. diana. I thank Dr. diana for this consult and the date of this consult is 12/29/2019 Review of Systems Review of Systems: All systems reviewed & are unremarkable except as noted in HPI and below Constitutional: Constitutional: Reports as per HPI and Reports no additional constitutional complaints Eyes: Eyes: Reports as per HPI and Reports no additional eye complaints ENT: Reports system reviewed and no additional complaints, except as documented and Reports Normal hearing present Cardiovascular: Cardiovascular: Reports no additional cardiovascular complaints Respiratory: Respiratory: Reports no additional respiratory complaints and Reports no additional respiratory complaints Gastrointestinal: Gastrointestinal: Reports as per HPI and Reports no additional gastrointestinal complaints Musculoskeletal: Musculoskeletal: Reports no additional musculoskeletal complaints Integumentary/Breasts: Skin/Breast: Reports system reviewed and no additional complaints, except as docu and Reports as per HPI Neurologic: Reports system reviewed and no additional complaints, except as documented, Reports as per HPI and Reports Normal hearing present Psychiatric: Psychiatric: Reports no additional psychiatric complaints and Reports as per HPI Endocrine: Endocrine: Reports no additional endocrine complaints Hematologic/Lymphatic: Hematologic/Lymphatic: Reports no additional hematologic/lymphatic complaints Allergic/Immunologic: Allergic/Immunologic: Reports no additional allergic/immunologic complaints [facility] Past Medical History Medical History (Updated 12/29/19 @ 16:36 by Misty Melchor NP) CAD (coronary artery disease) Managed medically by Cardiology. Dyslipidemia Hypertension Osteoarthritis of knee Right bundle branch block Surgical History Surgical History (Updated 12/29/19 @ 16:40 by Misty Melchor NP) H/O bilateral cataract extraction H/O cardiac catheterization No intervention H/O: hysterectomy History of hip replacement R MATTHEW in 2014 S/P partial hysterectomy S/P total knee arthroplasty Right knee per Dr. Diana 12/29/2019 Family History Family History (Updated 12/29/19 @ 16:36 by
--- NOTE | 2020-01-05 13:27 | PTOPEVAL ---
PHYSICAL THERAPY EVALUATION AND PLAN OF CARE Thank you for referring Yohana Francis to [facility]. Yohana has been scheduled to participate in physical therapy 3x/week for 4 weeks. Please review, sign, date and return this plan of care JEREMÍAS. I agree with and certify that the following plan of care is medically necessary. Referring Physician Date Attending Provider: Socrates Klein MD Evaluation Diagnosis right TKA Onset 12/29/2019 Subjective Information Yohana is 1 week s/p right TKA. Query Text:As Reported By Patient/ She had significant OA. She Family reports overall doing well except that she is experiencing blisters around the right leg that the physician is aware of. The blisters are believed to be from the blood thinner she is on and she will see Dr. Klein tomorrow. She states that she feels like she can walk with a cane at home, but she does not want to do too much. Prior Level of Function Home Setting Home Type House,Multiple Levels Living Situation Alone Support Available Local Family Support Mobility Assistive Devices (Used Last 3 None Months) Comments Additional Prior Level of Function shower is down a flight of Comments stairs. Self Report Pain Assessment Right Knee(s) Reported Pain Level 2 Pain Description Aching Pain Frequency Acute,Intermittent Lowest Pain Intensity 0 Greatest Pain Intensity 6 Pain Aggravating Factors Walking,Weight Bearing/ Standing Pain Behaviors None Pain Relief Interventions Used By Ice,Medication Patient Knee Range of Motion Right Knee Flexion Range of Motion - Active 74 Knee Extension Range of Motion - Active 4 Knee Strength Right Knee Flexion Strength 3 Fair Knee Extension Strength 3- Fair - Extremity Circumference Assessment Circumference Assessment Location Right Body Part Knee Site Descriptor (Ulmer) 6 suprapatellar Circumference (cm) 51 Noninvolved Side Circumference (cm) 48 Gait Pattern Antalgic Gait Other Gait Observations limited right knee flexion and push off - very stiff right leg during gait; instructed to use walker to assist in
--- NOTE | 2020-01-28 15:57 | PTOPEVAL ---
PHYSICAL THERAPY DISCHARGE NOTE Thank you for referring Yohana Francis to [facility]. Please review, sign, date and return this plan of care JEREMÍAS. I agree with and certify that the following plan of care is medically necessary. Referring Physician Date Attending Provider: Socrates Klein MD Problem Diagnosis right TKA Onset 12/29/2019 Subjective Information Yohana is 4 week s/p right TKA. Query Text:As Reported By Patient/ She reports some continues Family stiffness in the knee but she can work it out with her exercises. 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 Self Report Pain Assessment Right Knee(s) Reported Pain Level 0 Pain Description Aching Pain Aggravating Factors Walking Pain Behaviors None Lower Extremity Range of Motion Knee Range of Motion Right Knee Flexion Range of Motion - Active 105 Knee Extension Range of Motion - Active 4 Query Text: Lower Extremity Muscle Strength Testing Knee Strength Right Knee Flexion Strength 5 Normal Knee Extension Strength 4 Good Balance Assessment [place] Balance Assessment 53/56 Gait Pattern No Deviations/Normal Other Gait Observations continues to have a very mild limitation in knee flexion in swing phase -significant improvement noted Stair Climbing Assessment Number of Steps Climbed (Steps) 4 Number of Repetitions (Repetitions) 3 Technique Alternating Steps Stair Climbing Direction Both Up and Down Stair Climbing Ability Independent PT Clinical Summary Yohana is an 84 yo female 4 weeks s/p right TKA. She is ambulating without device very comfortably. She performs stair climbing with reciprocal steps and independently. Yohana performs [place] Balance Assessment well above threshold for increased fall risk. Her ROM is 4-105deg; however, this is likely due to mild edema remaining in popliteal fossa. She is
== END 2020-01-29 12:50 | disposition home or self-care (01) ==
LOC: ANHPT 15:45
PROVIDERS: PCP Family Medicine Adolescent Medicine; Visit Provider Orthopaedic Surgery
DX: Z47.1 Aftercare following joint replacement surgery (principal); Z96.651 Presence of right artificial knee joint
CPT/HCPCS: 29581; 97016; 97110; 97140; 97161

== ENCOUNTER 2020-08-26 17:18 | Outpatient (CLI) | payer MEDICARE, SELFPAY | END 2020-08-26 17:19 | disposition home or self-care (01) | LOC: ANHCOVIDVC 17:18 | PROVIDERS: PCP Family Medicine Adolescent Medicine | DX: Z23 Encounter for immunization (principal) | CPT/HCPCS: 0001A; 91300 ==

== ENCOUNTER 2020-09-16 17:14 | Outpatient (CLI) | payer MEDICARE, SELFPAY | END 2020-09-16 17:15 | disposition home or self-care (01) | LOC: ANHCOVIDVC 17:14 | PROVIDERS: PCP Family Medicine Adolescent Medicine | DX: Z23 Encounter for immunization (principal) | CPT/HCPCS: 0002A; 91300 ==